=== PATIENT | female | born 1930 | race Caucasian/White ===

== ENCOUNTER → 2018-06-14 13:03 | Outpatient (CLI) | payer MEDICARE ==
[2018-06-14 13:56] LABS: APPEARANCE CLEAR (CLEAR); BACTERIA FEW /hpf (NONE SEEN); BILIRUBIN NEGATIVE (NEGATIVE); COLOR YELLOW (YELLOW); EPITHELIAL CELLS 0-5 /hpf (0-5); GLUCOSE NEGATIVE (NEGATIVE); KETONE NEGATIVE (NEGATIVE); NITRITE NEGATIVE (NEGATIVE); PROTEIN NEGATIVE (NEGATIVE); RED CELLS - URINE 0-5 /hpf (0-5); UROBILINOGEN NORMAL (NORMAL)
== END | disposition home or self-care (01) ==
LOC: D.LABREF 13:03
PROVIDERS: Family Medicine
DX: N39.0 Urinary tract infection, site not specified (principal)